=== PATIENT | male | born 1985 | race Caucasian/White ===

== ENCOUNTER 2017-05-16 20:51 | Emergency (ER) ==
[2017-05-16] MEDS ORDERED: SUBLIMAZE IVP STA (21:00)
[2017-05-16] MEDS ORDERED: VERSED IVP STA (21:00)
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
[2017-05-16] MEDS ORDERED: VERSED ONE (21:08)
[2017-05-16] MEDS ORDERED: LACTATED RINGERS 1,000 ML IV STA (21:08)
[2017-05-16 21:13] VITALS: BP 141/98; TEMP 99.7; BMI 42.5
--- NOTE | 2017-05-16 21:38 | ED.PDOC ---
Procedures - Intubation Indication: Present: Altered Mental Status Time of Intubation: 21:10 Medications: Yes: Succinylcholine (100), Propofol (150mg), Other (fentanyl 50mcg ) Type of Tube Used: Endotracheal Tube Size: 7 Cricoid Pressure Used: Yes Tube Valera Used: Yes Position of Tube at Lip: 22 Number of Attempts: 1 Suction Used: No Glidescope Used: No CO2 Detector Used: Yes Lung Sounds Equal Bilaterally: Yes Intubation Complications: Present: No complications (RSI Suzanne Dong cricoid pressure without incident) Tube Placement Verified by X-ray: Yes Conscious Sedation - Pre-op Assessment Weight: 350 lb Surgical History: left knee surgery, t&a, gallbladder removed, ear autoplasty surgery, - Medical History Past Medical History: None Other History: DDD
[2017-05-16 22:26] LABS: BILIRUBIN,URINE Negative (NEGATIVE); KETONES,URINE Trace (NEGATIVE); LEUKOCYTE ESTERASE ,URINE Negative (NEGATIVE); NITRITE,URINE Negative (NEGATIVE); PH,URINE 5.5 (5-9); PROTEIN,URINE 3+ (NEGATIVE); URINE, BLOOD 2+ (NEGATIVE)
[2017-05-16 22:31] LABS: ADD URINE MICROSCOPIC YES
[2017-05-16 22:32] LABS: BACTERIA,URINE TRACE (NOT PRESENT)
[2017-05-16 22:35] LABS: COCAIN SCREEN,URINE NEGATIVE (NEGATIVE)
[2017-05-16] MEDS ORDERED: SUBLIMAZE ONE (23:27)
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
== END 2017-05-16 22:00 | disposition short-term general hospital (02) ==
LOC: ED 20:51
DX: S09.90XA Unspecified injury of head, initial encounter (principal); R41.82 Altered mental status, unspecified; V29.9XXA Motorcycle rider (driver) (passenger) injured in unspecified traffic accident, initial encounter
CPT/HCPCS: 31500; 80306; 81001; 96360; 96361; 99285

== ENCOUNTER 2017-07-12 11:37 | Outpatient (CLI) ==
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
--- NOTE | 2017-07-12 12:33 | DI ---
EXAM: The thoracic spine three views HISTORY: Pain in thoracic spine COMPARISON: None FINDINGS: The vertebral bodies are normal in height. Alignment is normal. Intervertebral disk spaces are maintained.Small marginal osteophytes. No fracture identified. IMPERSSION: 1. No fracture identified. 2. Mild degenerative changes.
[2017-07-12 12:37] LABS: BASOPHILS # (AUTO) 0.1 K/uL (0-0.2); BASOPHILS % (AUTO) 0.6 % (0.0-3.0); EOSINOPHILS # (AUTO) 0.1 K/ul (0.0-0.7); EOSINOPHILS % (AUTO) 1.8 % (0.0-7.0); HEMATOCRIT 43.2 % (42.0-52.0); HEMOGLOBIN 14.6 g/dl (14.0-18.0); IMMATURE GRANULOCYTE % (AUTO) 0.8 % (0.0-5.0); LYMPHOCYTES # (AUTO) 2.4 K/uL (0.60-3.4); LYMPHOCYTES % (AUTO) 30.7 (10.0-50.0); MEAN CORPUSCULAR HEMOGLOBIN 31.3 pg (27.0-31.0); MEAN CORPUSCULAR HGB CONC 33.8 (31.8-35.4); MEAN CORPUSCULAR VOLUME 92.7 fl (80.0-94.0); MONOCYTES # (AUTO) 0.6 K/uL (0.4-2.0); MONOCYTES % (AUTO) 6.9 (0-10); NEUTROPHILS # (AUTO) 4.7 K/ul (2.0-6.9); NEUTROPHILS % (AUTO) 59.2; PLATELET COUNT 314 10^3/uL (140-440); RED BLOOD COUNT 4.66 10^6/ul (4.70-6.10); WHITE BLOOD COUNT 7.94 K/ul (4.2-10.2)
[2017-07-12 12:40] LABS: BILIRUBIN,URINE Negative (NEGATIVE); KETONES,URINE Negative (NEGATIVE); LEUKOCYTE ESTERASE ,URINE Negative (NEGATIVE); NITRITE,URINE Negative (NEGATIVE); PH,URINE 5.5 (5-9); PROTEIN,URINE Negative (NEGATIVE); URINE, BLOOD Negative (NEGATIVE)
[2017-07-12 12:50] LABS: ADD URINE MICROSCOPIC NO
[2017-07-12 13:01] LABS: ALBUMIN 3.9 g/dL (3.4-5.0); ALBUMIN/GLOBULIN RATIO 0.98; ANION GAP 16.1; BILIRUBIN,TOTAL 0.78 mg/dL (0.00-1.20); BUN/CREATININE RATIO 5.49; CALCIUM 10.5 mg/dL (8.2-10.2); CHOL/HDL RATIO 7.4 (4.5-6.4); CREATININE 0.91 mg/dL (0.60-1.10); POTASSIUM 4.1 mmol/L (3.5-5.1); TOTAL PROTEIN 7.9 g/dL (6.4-8.2); VALPORIC ACID (DEPAKENE) 27.34 ug/mL (50.00-100.00)
== END 2017-07-12 11:38 | disposition home or self-care (01) ==
LOC: LAB 11:37
PROVIDERS: ATTEND Nurse Practitioner Family
DX: G44.311 Acute post-traumatic headache, intractable (principal); I10 Essential (primary) hypertension; M54.6 Pain in thoracic spine; M54.5 Low back pain; M25.511 Pain in right shoulder; R07.81 Pleurodynia; Z87.81 Personal history of (healed) traumatic fracture; Z13.89 Encounter for screening for other disorder
CPT/HCPCS: 36415; 80053; 80061; 80164; 81001; 85025

== ENCOUNTER 2017-07-13 09:10 | Outpatient (CLI) ==
--- NOTE | 2017-07-13 22:18 | MRI ---
EXAM: Brain MRI with and without contrast. HISTORY: Acute post traumatic intractable headache. COMPARISON: None. TECHNIQUE: Multiplanar, multisequence MR images were acquired of the brain before and after administ ration of intravenous contrast. FINDINGS: The midline structures are central and the craniocervical junction is unremarkable. There is mild lateral third ventriculomegaly and mild prominence of some sulci. There is a moderate area of cystic encephalomalacia in the anterior left frontal lobe above the orbit al roof and a small area of cystic encephalomalacia in the anteromedial right frontal lobe above the cribriform plate. This extends into the gyri recti bilaterally. There is also a small area of encep halomalacia in the inferior right temporal lobe above the petrous ridge and a small area of encephalo malacia in the anterolateral left temporal lobe. These areas demonstrate linear and nodular serpenti ne hyperintense T1 signal laminar necrosis and linear and nodular dark gradient echo signal that may represent microcalcification or chronic petechial hemorrhage. Chronic petechial hemorrhages are pres ent in both anterior superomedial frontal lobes, the right precentral gyrus and right parietal lobe. After administration of contrast, there is mild enhancement in the moderate left anterior frontal co ntusion and in the right temporal contusion above the petrous ridge. This may be due to luxury perfu goyo or blood brain barrier breakdown. There is a small area of diffusion restriction with mild bright B 1000, isointense ADC signal and fidel nt bright T2 signal in the superior right parietal subcortical white matter. This may represent T2 s dudley through or a small area of subacute ischemia. There are faint small foci of diffusion restricti on with mildly bright B 1000 and isointense ADC signal in both posterior internal capsules, slightly greater on the right and in the posterior body and splenium of the corpus callosum, greater on the le ft. These areas demonstrate faint bright T2 / FLAIR signal and probably represent small foci of dif fuse axonal injury. The pituitary gland is unremarkable. There are no intraorbital masses. There is a complex polyp or mucous retention cyst in the right max illary sinus which has central hyperintense T1, dark T2 and FLAIR signal that may represent calcifica tion or debris. The appearance raises the possibility of a fungal sinusitis. There is fluid and muc osal thickening extensively involving all of the right mastoid air cells and in a mild to moderate nu mber of the left. There is no abnormal contrast enhancement in the internal auditory canals or labyri nthine structures. Moderate adenoidal hypertrophy is present. Flow voids are present in the major intracranial arteries and dural venous sinuses. IMPRESSION: 1. Small and moderate areas of cystic encephalomalacia are present in both anterior frontal lobes ab ove the orbital roofs, greater on the left with extension into both gyri recti, in the inferior right temporal lobe and anterolateral left temporal lobe. These areas demonstrate probable laminar necros is and chronic petechial hemorrhage. The appearance and signal characteristics are most consistent w ith areas of post-traumatic encephalomalacia or hemorrhagic contusions. 2. Small areas of fading diffusion restriction are present in the posterior internal capsules bilate rally and posterior body and splenium of the corpus callosum, greater on the left. This is suggestiv e of small foci of diffuse axonal injury. 3. No intracranial mass or acute cerebral infarct. 4. Extensive right and mild to moderate left mastoiditis.
== END 2017-07-13 09:11 | disposition home or self-care (01) ==
LOC: RAD 09:10
PROVIDERS: ATTEND Nurse Practitioner Family
DX: G44.311 Acute post-traumatic headache, intractable (principal)

== ENCOUNTER 2017-08-10 12:50 | Outpatient (CLI) ==
[2017-08-10 13:16] LABS: ALANINE AMINOTRANSFERASE 28 U/L (12-78); ALBUMIN 4.2 g/dL (3.4-5.0); ALBUMIN/GLOBULIN RATIO 1.11; ALKALINE PHOSPHATASE 98 U/L (50-136); ASPARTATE AMINO TRANSFERASE 13 U/L (15-37); BILIRUBIN,TOTAL 0.63 mg/dL (0.00-1.20); BLOOD UREA NITROGEN 8 mg/dL (7-18); BUN/CREATININE RATIO 9.52; CALCIUM 10.3 mg/dL (8.2-10.2); CARBON DIOXIDE 22 mmol/L (21-32); CHLORIDE 109 mmol/L (98-107); CHOL/HDL RATIO 6.4 (4.5-6.4); CHOLESTEROL 251 mg/dL (0-200); CREATININE 0.84 mg/dL (0.60-1.10); GLUCOSE 99 mg/dL (70-100); HDL CHOLESTEROL 39 mg/dL (35-60); SODIUM 142 mmol/L (136-145); TRIGLYCERIDES 288 mg/dL (30-150); VLDL CHOLESTEROL 58 mg/dL (2-30)
[2017-08-10 13:18] LABS: VALPORIC ACID (DEPAKENE) < 2.00 ug/mL (50.00-100.00)
== END 2017-08-10 12:51 | disposition home or self-care (01) ==
LOC: LAB 12:50
PROVIDERS: ATTEND Nurse Practitioner Family
DX: E78.5 Hyperlipidemia, unspecified (principal); F31.9 Bipolar disorder, unspecified; Z87.828 Personal history of other (healed) physical injury and trauma
CPT/HCPCS: 36415; 80053; 80061; 80164

== ENCOUNTER 2017-08-17 14:39 | Outpatient (CLI) ==
--- NOTE | 2017-08-17 15:06 | DI ---
EXAM: CHEST FRONTAL AND LATERAL VIEWS HISTORY: Cough. COMPARISON: 05/16/2017 FINDINGS: Heart size and mediastinal contour remain within normal limits. No acute infiltrates. Normal vascularity with no pleural fluid or pneumothorax. The bony thorax has no acute finding. IMPRESSION: No acute process.
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
== END 2017-08-17 14:40 | disposition home or self-care (01) ==
LOC: RAD 14:39
PROVIDERS: ATTEND Nurse Practitioner Family
DX: R05 Cough (principal); Z87.81 Personal history of (healed) traumatic fracture

== ENCOUNTER 2017-10-18 14:58 | Outpatient (CLI) | END 2017-10-18 14:59 | disposition home or self-care (01) | LOC: LAB 14:58 | PROVIDERS: ATTEND Nurse Practitioner Family | DX: E78.5 Hyperlipidemia, unspecified (principal); I10 Essential (primary) hypertension | CPT/HCPCS: 36415; 80053; 80061; 85025 ==

== ENCOUNTER 2018-10-30 19:44 | Emergency (ER) | payer OTHER ==
[2018-10-30 19:52] VITALS: TEMP 98.4; BMI 45.1
[2018-10-30] MEDS ORDERED: NEURONTIN PO STA (20:12)
[2018-10-30] MEDS ORDERED: CATAPRES PO STA (20:12)
--- NOTE | 2018-10-30 20:58 | CT ---
EXAM: CT brain without contrast HISTORY: Headache TECHNIQUE: Multi-slice sequential. Coronal and sagital reformations were performed. COMPARISON: None FINDINGS: No definite acute intracranial hemorrhage or midline shift is seen. There is of hypodensity are again seen within the bilateral frontal lobes and the bilateral temporal lobes, worst in the left frontal and right parietal lobes. Beam-hardening artifact related to metallic structure associated with the right globe partially obscures the skull base region. The ventricles are normal in size.The cardenas-whi te matter interface is maintained.The basal cisterns are patent.Mild mucosal thickening in the right maxillary sinus is seen. Operative changes of right mastoidectomy is seen. Fluid in the right masto id air cells are also seen.The calvarium is unremarkable. IMPRESSION: No acute intracranial hemorrhage or midline shift. Multi focal areas of encephalomalacia in the bilateral frontal and bilateral temporal lobes. Previous right mastoidectomy with right mastoid effusion or mastoiditis. Mild right maxillary chronic sinus disease. Metallic density structure associated with the right globe.
--- NOTE | 2018-10-30 21:03 | CT ---
EXAM: CT scan facial bones HISTORY: Headache COMPARISON: None. FINDINGS: Contiguous axial images obtained through the facial bones without contrast utilizing 3-mm collimation. Sagittal and coronal reconstructions were imaged and reviewed.. A metallic structure pr ojects over the anterior right orbit.. No acute fracture. Minimal mucoperiosteal thickening is seen within the right maxillary sinus Fluid is seen within multiple air cells within the right mastoid w ith likely partial resection. The mandible is intact. IMPRESSION: No acute findings. Minimal benign sinus disease. Right mastoid effusion
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
[2018-10-30 21:23] VITALS: BP 135/80
== END 2018-10-30 21:48 | disposition short-term general hospital (02) ==
LOC: ED 19:44
DX: R51 Headache (principal)
CPT/HCPCS: 99283

== ENCOUNTER 2018-11-06 09:45 | Outpatient (CLI) | END 2018-11-06 09:46 | disposition home or self-care (01) | LOC: RHC-LAB 09:45 → FCC-LAB 09:46 | PROVIDERS: ATTEND Family Medicine | DX: E78.5 Hyperlipidemia, unspecified (principal); R73.9 Hyperglycemia, unspecified | CPT/HCPCS: 36415; 80053; 80061; 83037 ==

== ENCOUNTER 2018-11-21 11:01 | Outpatient (CLI) | END 2018-11-21 11:02 | disposition home or self-care (01) | LOC: LAB 11:01 | PROVIDERS: ATTEND Family Medicine | DX: E78.5 Hyperlipidemia, unspecified (principal); R74.8 Abnormal levels of other serum enzymes | CPT/HCPCS: 36415; 80053; 80074 ==

== ENCOUNTER 2019-02-25 22:50 | Emergency (ER) ==
[2019-02-25 23:09] VITALS: BP 148/92; TEMP 99.1; BMI 45.0
--- NOTE | 2019-02-25 23:43 | CT ---
Exam: CT of the abdomen and pelvis without contrast History: Rectal bleeding and abdominal cramping Technique: [address] of the abdomen and pelvis without contrast FINDINGS: The lung bases are clear. No significant liver abnormality. The adrenals, pancreas and s pleen are unremarkable. The stomach and hiatus are unremarkable.The gallbladder is absent. Kidneys and proximal collecting system are unremarkable. The appendix is normal. Bowel loops demonstrate no rmal caliber. No inflamatory change seen in the mesentery or retroperitoneum. Vascular structures a ppear normal. Pelvic genitourinary structures appear normal. Pelvic bowel loops are unremarkable. No inflammatory change in the pelvic fat. No acute abnormality of the abdominal or pelvic skeleton. Small fatty um bilical hernia without complication. Impression: 1. No inflammatory process, bowel or urinary obstruction. No acute findings of the abdomen or pelvi s.
--- NOTE | 2019-02-25 23:59 | ED.PDOC ---
General ED Provider: Dr. NASIR HUNG-ER Chief Complaint: GI Bleed Stated Complaint: roni had bloody diarrhea Time Seen by Physician: 22:55 Mode of Arrival: Walk-In Information Source: Patient Exam Limitations: No limitations Nursing and Triage Documentation Reviewed and Agree: Yes Does patient meet sepsis criteria?: No System Inflammatory Response Syndrome: Not Applicable Sepsis Protocol: For patient's 13 years and over: Temp is 96.8 and below OR 101 and greater Pulse >90 BPM Resp >20/minute Acutely Altered Mental Status Are patient's symptoms suggestive of a new infection, such as: -Pneumonia -Skin, Soft Tissue -Endocarditis -UTI -Bone, Joint Infection -Implantable Device -Acute Abdominal Infection -Wound Infection -Meningitis -Blood Stream Catheter Infection -Unknown GI Complaint Exam - Abdominal Pain Complaint/Exam Onset: Gradual Duration: several days Symptoms Are: Still present Initial Severity: Mild Current Severity: Mild Location of Pain: Diffuse Character: Reports: Dull, Aching, Cramping Alleviating: Reports: None Associated Signs and Symptoms: Reports: Diarrhea. Denies: Diaphoresis, Fever, Cough, Chest pain, Dizziness, Back pain, Constipation, Blood in stool, Dysuria, Urinary frequency, Decreased urine output, Decreased appetite, Discharge, Nausea , Vomiting, Decreased activity Differential Diagnoses: Other Review of Systems - Review Of Systems Constitutional: Reports: No symptoms Eyes: Reports: No symptoms Ears, Nose, Mouth, Throat: Reports: No symptoms Respiratory: Reports: No symptoms Cardiac: Reports: No symptoms GI: Reports: Abdominal pain, Diarrhea, Rectal bleeding : Reports: No symptoms Musculoskeletal: Reports: No symptoms Skin: Reports: No symptoms Neurological: Reports: No symptoms Endocrine: Reports: No symptoms Hematologic/Lymphatic: Reports: No symptoms All Other Systems: Reviewed and Negative Past Medical History - Past Medical History Previously Healthy: Yes Endocrine: Reports: None Cardiovascular: Reports: None Respiratory: Reports: None Hematological: Reports: None Gastrointestinal: Reports: None Genitourinary: Reports: None Neuro/Psych: Reports: None Musculoskeletal: Reports: Back Pain Cancer: Reports: None Other Pertinent Past Medical History: back pain - Surgical History General Surgical History: Reports: Other (Gall bladder, T/A, bilat Autoplasty, left knee surg) - Family History Family History: Reports: None - Social History Smoking Status: Never smoker Hx Substance Use: No Alcohol Screening: None - Immunizations Tetanus Shot up to Date: Yes (2018) Physical Exam - Physical Exam Appearance: Well-appearing, No pain distress, Well-nourished Eyes: [place] ENT: Ears normal Neck: Supple Respiratory: Airway patent, Breath sounds clear, Breath sounds equal, Respirations nonlabored Cardiovascular: RRR GI/: Soft Musculoskeletal: Normal strength, ROM intact, No edema, No calf tenderness Skin: Warm, Dry, Normal color Neurological: Sensation intact, Motor intact, Reflexes intact, Cranial nerves intact, Alert, Oriented Psychiatric: Affect appropriate, Mood appropriate Interpretation - Radiology Interpretation Radiology Interpretation By: Radiologist Radiology Results: Negative Exam Interpreted: CT Scan Critical Care Note - Critical Care Note Total Time (mins): 0 Course - Course Hematology/Chemistry: 02/25/19 23:20 02/25/19 23:20 Orders, Labs, Meds: Lab Review 02/25/19 02/25/19 02/25/19 23:20 23:20 23:20 WBC 11.50 H RBC 4.86 Hgb 15.2 Hct 45.4 MCV 93.4 MCH 31.3 H MCHC 33.5 RDW Coeff of [place] 13.3 Plt Count 284 Immature Gran % (Auto) 0.5 Neut % (Auto) 57.4 Lymph % (Auto) 31.0 [place] % (Auto) 8.8 Eos % (Auto) 1.8 Baso % (Auto) 0.5 Immature Gran # (Auto) 0.1 Neut # (Auto) 6.6 Lymph # (Auto) 3.6 H [place] # (Auto) 1.0 Eos # (Auto) 0.2 Baso # (Auto) 0.1 ESR 13 Sodium 141.2 Potassium 4.26 Chloride 101.1 Carbon Dioxide 28.3 Anion Gap 16.06 BUN 18.8 Creatinine 1.28 H Estimated GFR (MDRD) 64.00 BUN/Creatinine Ratio 14.68 Glucose 99.7 Calcium 10.03 Total Bilirubin 0.82 AST 37.2 ALT 47.3 Alkaline Phosphatase 80.7 Total Protein 8.04 Albumin 4.88 Globulin 3.16 Albumin/Globulin Ratio 1.54 Orders Category Date Time Status CBC W/ AUTO DIFF Stat LAB 02/25/19 23:20 Completed COMPREHENSIVE METABOLIC PANEL Stat LAB 02/25/19 23:20 Completed ESR Stat LAB 02/25/19 23:20 Completed STOOL CULTURE Stat LAB 02/25/19 Uncollected URINALYSIS C & S IF INDICATED Stat LAB 02/25/19 23:[address] ABDOMEN/PELVIS WO CONTRAST Stat RADS 02/25/19 23:10 Completed Vital Signs: Temp Pulse Resp BP Pulse Ox 02/25/19 22:51 99.1 F 79 20 148/92 H 97 Departure - Departure Time of Disposition: 23:58 Disposition: HOME SELF-CARE Discharge Problem: Rectal bleeding Diarrhea Qualifiers: Diarrhea type: unspecified type Qualified Code(s): R19.7 - Diarrhea, unspecified Instructions: Acute Diarrhea (ED) Condition: Good Pt referred to PMD for follow-up: Yes IPMP verified?: No Additional Instructions: collect stool as ordered---f/u with pcp Prescriptions: Metronidazole [Flagyl] 250 mg PO Q8HR #20 tablet Sulfamethoxazole/Trimethoprim [Bactrim Ds 800/160 mg] 1 tab PO Q12HR #14 tablet Allergies/Adverse Reactions: Allergies aripiprazole [From Abilify] Adverse Reaction (Verified 10/30/18 21:06) divalproex sodium [From Depakote] Adverse Reaction (Verified 02/25/19 23:09) MIGRAINE polyethylene glycol [From Golytely] Adverse Reaction (Verified 10/30/18 21:06) polyethylene glycol 3350 [From Golytely] Adverse Reaction (Verified 10/30/18 21: 06) potassium chloride [From Golytely] Adverse Reaction (Verified 10/30/18 21:06) sodium [From Golytely] Adverse Reaction (Verified 10/30/18 21:06) sodium bicarbonate [From Golytely] Adverse Reaction (Verified 10/30/18 21:06) sodium chloride [From Golytely] Adverse Reaction (Verified 10/30/18 21:06) sodium sulfate [From Golytely] Adverse Reaction (Verified 10/30/18 21:06) sodium sulfate anhydrous [From Golytely] Adverse Reaction (Verified 10/30/18 21: 06) topiramate [From Topamax] Adverse Reaction (Verified 10/30/18 21:06) Home Medications: Ambulatory Orders Acetaminophen [Tylenol] 500 mg PO TID 02/25/19 Quetiapine Fumarate [Seroquel] 25 mg PO BEDTIME 02/25/19 Tramadol HCl 50 mg PO BID 02/25/19 Metronidazole [Flagyl] 250 mg PO Q8HR #20 tablet 02/26/19 Sulfamethoxazole/Trimethoprim [Bactrim Ds 800/160 mg] 1 tab PO Q12HR #14 tablet 02/26/19 Disposition Discussed With: Patient, Family
== END 2019-02-26 00:11 | disposition home or self-care (01) ==
LOC: ED 22:50
DX: K92.1 Melena (principal); R19.7 Diarrhea, unspecified; R10.9 Unspecified abdominal pain
CPT/HCPCS: 36415; 80053; 85025; 85651; 99283

== ENCOUNTER 2019-02-28 13:05 | Outpatient (CLI) | END 2019-02-28 13:06 | disposition home or self-care (01) | LOC: LAB 13:05 | PROVIDERS: ATTEND Family Medicine | DX: R19.7 Diarrhea, unspecified (principal) | CPT/HCPCS: 87015; 87045; 87493; 87899 ==